=== PATIENT | female | born 1995 | race Hispanic/Latino ===

== ENCOUNTER → 2017-02-17 | Outpatient (REF) | payer BC | LOC: M LAB REF 13:12 | PROVIDERS: ATTEND Internal Medicine Endocrinology, Diabetes & Metabolism | DX: E28.2 Polycystic ovarian syndrome (principal) ==

== ENCOUNTER → 2019-02-15 | Outpatient (REF) | payer OTHER | LOC: M LAB REF 16:39 | PROVIDERS: ATTEND Obstetrics & Gynecology | DX: N90.89 Other specified noninflammatory disorders of vulva and perineum (principal) ==

== ENCOUNTER → 2019-05-17 | Outpatient (CLI) | payer BC, OTHER ==
[2019-05-17 09:57] LABS: HEMATOCRIT 35.4 % (36.0-47.0); HEMOGLOBIN 12.2 g/dl (12.0-15.5); MEAN CORPUSCULAR HEMOGLOBIN 28.8 pg (27.0-33.0); MEAN CORPUSCULAR HGB CONC 34.5 g/dl (32.0-36.5); MEAN CORPUSCULAR VOLUME 83.5 fl (80.0-96.0); PLATELET COUNT, AUTOMATED 254 10^3/uL (150-450); RED BLOOD COUNT 4.24 10^6/uL (4.00-5.40); WHITE BLOOD COUNT 4.7 10^3/uL (4.0-10.0)
[2019-05-17 10:21] LABS: ALBUMIN 3.2 GM/DL (3.2-5.2); ALT/SGPT 17 U/L (12-78); BILIRUBIN,TOTAL 0.3 MG/DL (0.2-1.0); BLOOD UREA NITROGEN 8 MG/DL (7-18); CARBON DIOXIDE LEVEL 25 MEQ/L (21-32); CHLORIDE LEVEL 107 MEQ/L (98-107); CHOLESTEROL LEVEL 199 MG/DL (<200); CHOLESTEROL RISK RATIO 4.061 (<5); CREATININE FOR GFR 0.85 MG/DL (0.55-1.30); ESTRADIOL 29.2 PG/ML; FOLLICLE STIMULATING HORMONE 3.4 mIU/mL; GLOMERULAR FILTRATION RATE > 60.0 (>60); GLUCOSE, FASTING 83 MG/DL (70-100); HDL CHOLESTEROL 49 MG/DL (>40); IRON (FE) 68 UG/DL (50-170); LDL CHOLESTEROL 128 MG/DL (<100); LUTEINIZING HORMONE 4.2 mIU/mL; NON-HDL-C 150 MG/DL; PERCENT SATURATION 18.6 % (13.2-45.0); POTASSIUM SERUM 4.3 MEQ/L (3.5-5.1); SODIUM LEVEL 139 MEQ/L (136-145); TESTOSTERONE 22 NG/DL (14-76); THYROXINE (T4) 15.1 UG/DL (4.5-12.0); TOTAL IRON BINDING CAPACITY 365 UG/DL (250-450); TOTAL PROTEIN 7.3 GM/DL (6.4-8.2); TOTAL T3 163.1 NG/DL (60.0-181.0); TRIGLYCERIDES LEVEL 108 MG/DL (<150)
[2019-05-17 10:25] LABS: HEMOGLOBIN A1c 5.5 %
== END ==
LOC: M LAB 08:08
PROVIDERS: ATTEND Family Medicine
DX: I10 Essential (primary) hypertension (principal); R53.83 Other fatigue; E11.9 Type 2 diabetes mellitus without complications; E03.9 Hypothyroidism, unspecified; E07.9 Disorder of thyroid, unspecified

== ENCOUNTER 2021-07-06 21:18 | Emergency (ER) | payer BC, OTHER ==
[~2021-07-06] VITALS: Ht 172.7 cm; Wt 68.1 kg
[2021-07-06] MEDS ORDERED: ISIB1TAB PO (22:21)
[2021-07-06] MEDS ORDERED: SPIR50TA4 PO (22:21)
[2021-07-07 00:20] LABS: BASO % 0.2 % (0.0-1.0); EOS # 0.1 10^3/uL (0.0-0.5); EOS % 1.1 % (0.0-3.0); HEMATOCRIT 37.8 % (36.0-47.0); HEMOGLOBIN 13.6 g/dl (12.0-15.5); LYMPH # 1.7 10^3/uL (1.5-5.0); LYMPH % 36.1 % (24.0-44.0); MEAN CORPUSCULAR HEMOGLOBIN 29.5 pg (27.0-33.0); MONO # 0.4 10^3/uL (0.0-0.8); MONO % 8.3 % (2.0-8.0); NEUTROPHILS # 2.6 10^3/uL (1.5-8.5); NEUTROPHILS % 54.1 % (36.0-66.0); PLATELET COUNT, AUTOMATED 251 10^3/uL (150-450); RED BLOOD COUNT 4.61 10^6/uL (4.00-5.40); WHITE BLOOD COUNT 4.7 10^3/uL (4.0-10.0)
[2021-07-07 00:30] LABS: INR 1.02; PROTHROMBIN TIME 13.8 SECONDS (12.7-14.5)
[2021-07-07 00:31] LABS: PARTIAL THROMBOPLASTIN TIME 32.3 SECONDS (25.9-37.0)
[2021-07-07 00:33] LABS: D-DIMER QUANT 1047.51 ng/ml (<500)
[2021-07-07 00:42] LABS: ALBUMIN 3.4 GM/DL (3.2-5.2); ALT/SGPT 27 U/L (12-78); BILIRUBIN,TOTAL 0.3 MG/DL (0.2-1.0); BLOOD UREA NITROGEN 12 MG/DL (7-18); C REACTIVE PROTEIN QUANTITATIV 1.02 MG/DL (0.00-0.30); CALCIUM LEVEL 8.6 MG/DL (8.5-10.1); CARBON DIOXIDE LEVEL 26 MEQ/L (21-32); CHLORIDE LEVEL 109 MEQ/L (98-107); CK-MB VALUE MASS < 1.0 NG/ML (<3.6); CPK CREATINE PHOSPHOKINASE 34 U/L (26-192); CREATININE FOR GFR 0.72 MG/DL (0.55-1.30); FERRITIN 131 NG/ML (8-252); GLOMERULAR FILTRATION RATE > 60.0 (>60); GLUCOSE, FASTING 89 MG/DL (70-100); LDH LACTATE DEHYDROGENASE 162 U/L (84-246); MB/CK RELATIVE INDEX 2.94 (< OR =4); POTASSIUM SERUM 3.8 MEQ/L (3.5-5.1); SODIUM LEVEL 141 MEQ/L (136-145); TOTAL PROTEIN 7.7 GM/DL (6.4-8.2); TROPONIN I < 0.02 NG/ML (< 0.10)
[2021-07-07] MEDS ORDERED: ISOVUE-370 76% 100ML VIAL As Ordered ONE (01:01)
--- NOTE | 2021-07-07 01:37 | REPVR ---
PROCEDURE INFORMATION: Exam: CTA Chest With Contrast Exam date and time: 07/07/2021 1:13 AM Age: 25 years old Clinical indication: Other: Chest pain, SOB, positive covid TECHNIQUE: Imaging protocol: Computed tomographic angiography of the chest with contrast. 3D rendering (Not supervised by radiologist): MIP and/or 3D reconstructed images were created by the technologist. Radiation optimization: All CT scans at this facility use at least one of these dose optimization techniques: automated exposure control; mA and/or kV adjustment per patient size (includes targeted exams where dose is matched to clinical indication); or iterative reconstruction. Contrast material: ISOVUE 370; Contrast volume: 75 ml; Contrast route: INTRAVENOUS (IV); COMPARISON: No relevant prior studies available. FINDINGS: Pulmonary arteries: No focal pulmonary artery filling defect to suggest acute pulmonary embolus. Aorta: No thoracic aortic aneurysm or dissection. Lungs: Pulmonary vascular/interstitial pattern does not suggest active pulmonary edema. Patchy peripheral airspace ground-glass opacities in the lungs bilaterally predominantly in the lower lobes, consistent with multifocal pneumonia. No mass or central endobronchial lesion. Pleural spaces: No pleural effusion or pneumothorax. Heart: No overt cardiac enlargement or abnormal volume of pericardial fluid. Mediastinal space: Residual thymic tissue is present in the anterior mediastinum. Lymph nodes: Small, nonspecific mediastinal nodes are present. Bones/joints: Bony structures show no acute fracture or destructive process. . Soft tissues: Unremarkable. IMPRESSION: 1. No evidence of acute pulmonary embolus. 2. Multifocal patchy ground-glass opacities in the lower lobes with a pattern concerning for early or mild changes of COVID-19 pneumonia Electronically signed by: Vito Tran On 07/07/2021 01:36:23 AM
[2021-07-07] MEDS ORDERED: KETOROLAC 30 MG/ML 1ML VIAL IV ONE (01:55)
[2021-07-07] MEDS ORDERED: KETO10TAB PO (02:11)
[2021-07-07 02:46] VITALS: BP 119/81
== END 2021-07-07 02:58 | disposition home or self-care (01) ==
LOC: M ED 21:18
DX: U07.1 COVID-19 (principal); R09.1 Pleurisy; Z79.899 Other long term (current) drug therapy
CPT/HCPCS: 71275; 80047; 80053; 82550; 82553; 82728; 83605; 83615; 84145; 84484; 84702; 85025; 85379; 85610; 85730; 86140; 96374; 99283; J1885; Q9967